=== PATIENT | male | born 1950 | race Two or more races ===

== ENCOUNTER 2019-03-31 23:00 | Emergency (ER) | payer OTHER ==
[~2019-03-31] VITALS: Ht 180.3 cm; Wt 99.8 kg
[2019-04-01] MEDS ORDERED: ADALAT CC30 MG PO (03:29)
== END 2019-04-01 03:59 | disposition home or self-care (01) ==
LOC: ER 23:00
DX: I16.0 Hypertensive urgency (principal); I10 Essential (primary) hypertension

== ENCOUNTER 2020-06-23 08:20 | Outpatient (CLI) | payer OTHER ==
[~2020-06-23 08:20] MED LIST: ADALAT CC30 MG PO
== END 2020-06-23 08:24 | disposition home or self-care (01) ==
LOC: RAD 08:20
PROVIDERS: ATTEND Specialist
DX: M17.0 Bilateral primary osteoarthritis of knee (principal)

== ENCOUNTER 2021-01-08 08:23 | Outpatient (CLI) | payer OTHER | END 2021-01-08 08:38 | disposition home or self-care (01) | LOC: NUCLEAR 08:23 | PROVIDERS: ATTEND Specialist | DX: I70.213 Atherosclerosis of native arteries of extremities with intermittent claudication, bilateral legs (principal) ==

== ENCOUNTER 2021-03-29 09:18 | Outpatient (CLI) | payer OTHER | END 2021-03-29 09:20 | disposition home or self-care (01) | LOC: TOM 09:18 | PROVIDERS: ATTEND Specialist | DX: S74.00XA Injury of sciatic nerve at hip and thigh level, unspecified leg, initial encounter (principal); G57.01 Lesion of sciatic nerve, right lower limb; G57.02 Lesion of sciatic nerve, left lower limb; M51.37 Other intervertebral disc degeneration, lumbosacral region ==

== ENCOUNTER 2022-04-28 09:10 | Outpatient (CLI) | payer OTHER | END 2022-04-28 09:20 | disposition home or self-care (01) | LOC: PPH VACUNA 09:10 | PROVIDERS: ATTEND Emergency Medicine Pediatric Emergency Medicine | DX: Z23 Encounter for immunization (principal) ==

== ENCOUNTER 2024-01-29 07:13 | Outpatient (CLI) | payer OTHER | END 2024-01-29 08:47 | disposition home or self-care (01) | LOC: SONOGRAMA 07:13 | PROVIDERS: ATTEND Specialist | DX: M51.06 Intervertebral disc disorders with myelopathy, lumbar region (principal); M51.16 Intervertebral disc disorders with radiculopathy, lumbar region; E03.9 Hypothyroidism, unspecified; K75.81 Nonalcoholic steatohepatitis (NASH) | CPT/HCPCS: 72148 ==

== ENCOUNTER → 2024-05-24 07:11 | Outpatient (CLI) | payer OTHER | END | disposition home or self-care (01) | LOC: NUCLEAR 07:00 | PROVIDERS: ATTEND Internal Medicine | DX: I20.9 Angina pectoris, unspecified (principal) | CPT/HCPCS: 78452; 93017; A9500 ==

== ENCOUNTER 2024-08-06 07:21 | Outpatient (CLI) | payer OTHER | END 2024-08-06 07:24 | disposition home or self-care (01) | LOC: SONOGRAMA 07:21 | PROVIDERS: ATTEND Specialist | DX: N19 Unspecified kidney failure (principal) ==

== ENCOUNTER 2025-07-24 07:08 | Outpatient (CLI) | payer OTHER | END 2025-07-24 07:10 | disposition home or self-care (01) | LOC: TOM 07:08 | PROVIDERS: ATTEND Specialist | DX: K57.91 Diverticulosis of intestine, part unspecified, without perforation or abscess with bleeding (principal) | CPT/HCPCS: 74177; Q9965 ==